=== PATIENT | female | born 1960 | race Caucasian/White ===

== ENCOUNTER → 2017-09-07 | Outpatient (CLI) | payer MEDICARE, OTHER ==
--- NOTE | 2017-09-07 15:26 | RAD ---
DATE: September 07, 2017 EXAM: MAMMO MAYI SCREENING BILATERAL HISTORY: Screening study. COMPARISON: 2014 and 2016 This study was interpreted with the benefit of Computerized Aided Detection (CAD). 2-D digital mammographic views of both breasts were performed in the CC and MLO projections. 3-D digital tomosynthesis of both breasts were performed in the CC and MLO projections and reviewed on a computer workstation. FINDINGS: The breast parenchyma is replaced with adipose tissue. There are no dominant suspicious masses, suspicious microcalcifications or evidence of architectural distortion. IMPRESSION: No mammographic indicators for malignancy. BI-RADS CATEGORY: 1 NEGATIVE RECOMMENDED FOLLOW-UP: 12M 12 MONTH FOLLOW-UP PQRS compliance statement: Patient information was entered into a reminder system with a target due date September 08, 2018 for the next mammogram. Mammography is a sensitive method for finding small breast cancers, but it does not detect them all and is not a substitute for careful clinical examination. A negative mammogram does not negate a clinically suspicious finding and should not result in delay in biopsying a clinically suspicious abnormality. "Our facility is accredited by the [employer] Mammography Program." The patient's breast density may affect the ability of mammography to detect breast cancer. There are 4 categories of breast density, A, B, C and D. Breast density A means that most of the breast tissue is replaced with adipose tissue and therefore is not dense. Breast density B means that the breast tissue is mildly dense and scattered. Breast density C means that the breast tissue is heterogeneously dense. Breast density D means that the breast tissue is very dense. Breast densities especially C and D may decrease the sensitivity of mammography to detect breast cancer. Therefore, the patient may benefit from 3-D breast mammography (3D breast tomography) as a part of their screening mammogram. Insurance may or may not pay for this additional imaging. The patient's breast density based on today's mammogram is category A.
== END | disposition home or self-care (01) ==
LOC: MAMMO 13:42
PROVIDERS: ATTEND Family Medicine
DX: Z12.31 Encounter for screening mammogram for malignant neoplasm of breast (principal)
CPT/HCPCS: 77063; G0202; 77067

== ENCOUNTER → 2017-09-22 | Outpatient (CLI) | payer MEDICARE, OTHER ==
[~2017-09-22] MED LIST: BUPIVACAINE MPF 0.25% 10 ML VIAL. ONE; IOHEXOL 300 MG/ML 50 ML VIAL. ONE; LIDOCAINE 1% PF 30 ML VIAL. ONE; methylPREDNISolone ACETATE 40 MG/ML VIAL. ONE
== END | disposition home or self-care (01) ==
LOC: SURG 13:14
PROVIDERS: ATTEND Anesthesiology
DX: M46.1 Sacroiliitis, not elsewhere classified (principal); I25.10 Atherosclerotic heart disease of native coronary artery without angina pectoris; E07.9 Disorder of thyroid, unspecified; M19.91 Primary osteoarthritis, unspecified site; Z72.0 Tobacco use; Z87.01 Personal history of pneumonia (recurrent)
CPT/HCPCS: G0260; J1030; J2001; J3490; Q9967

== ENCOUNTER → 2017-10-20 | Outpatient (CLI) | payer MEDICARE, OTHER | END | disposition home or self-care (01) | LOC: SURG 13:03 | PROVIDERS: ATTEND Anesthesiology | DX: M46.1 Sacroiliitis, not elsewhere classified (principal); J45.909 Unspecified asthma, uncomplicated; I10 Essential (primary) hypertension; E07.9 Disorder of thyroid, unspecified; Z87.01 Personal history of pneumonia (recurrent); Z72.0 Tobacco use | CPT/HCPCS: G0260; J1030; J2001; J3490; Q9967; 27096 ==

== ENCOUNTER → 2017-12-29 | Outpatient (CLI) | payer MEDICARE, OTHER | END | disposition home or self-care (01) | LOC: SURG 15:08 | PROVIDERS: ATTEND Anesthesiology | DX: M53.3 Sacrococcygeal disorders, not elsewhere classified (principal); M47.817 Spondylosis without myelopathy or radiculopathy, lumbosacral region; M46.1 Sacroiliitis, not elsewhere classified | CPT/HCPCS: 99214 ==

== ENCOUNTER → 2018-01-26 | Outpatient (CLI) | payer MEDICARE, OTHER ==
[~2018-01-26] MED LIST changes: +ALPR2TAB2 PO; +ASPI-630 PO; +BENZ100C PO; +BUPR150T8 PO; +CARB1TAB2 PO; +CARI6CAP PO; +DEXAMETHASONE SOD PHOS 4 MG/ML VIAL ONE; +FLUO40CA9 PO; +FURO-68 PO; +IBUP200T44 PO; -IOHEXOL 300 MG/ML 50 ML VIAL. ONE; +LAMO200T3 PO; +LEVO100T PO; +LIPITOR80 MG PO; +LISI10TA2 PO; +MESA0.372 PO; +MIDAZOLAM HCL PF 2 MG/2 ML VIAL. ONE; +MONT10TA9 PO; +NEBI5TAB2 PO; +PANT40TA3 PO; +PATCH REMOVAL. MC SCH; +POTA10TA10 PO; +PRIM50TA24 PO; +TOPI200T6 PO; +TRAM50TA PO; +TRAZ-90 PO; -methylPREDNISolone ACETATE 40 MG/ML VIAL. ONE
[2018-01-26] MEDS: IV RINGERS SOLUTION,LACTATED 1,000 ML IV SCH (08:29)
[2018-01-26 10:05] VITALS: BP 119/58
[2018-01-26] MEDS: LIDOCAINE (700MG/PATCH) PATCH. TD SCH (10:15)
== END | disposition home or self-care (01) ==
LOC: SURG 07:21
PROVIDERS: ATTEND Anesthesiology
DX: M47.817 Spondylosis without myelopathy or radiculopathy, lumbosacral region (principal); M53.3 Sacrococcygeal disorders, not elsewhere classified; I25.10 Atherosclerotic heart disease of native coronary artery without angina pectoris; I10 Essential (primary) hypertension; E03.9 Hypothyroidism, unspecified; G47.30 Sleep apnea, unspecified; M19.90 Unspecified osteoarthritis, unspecified site; F32.9 Major depressive disorder, single episode, unspecified; F41.9 Anxiety disorder, unspecified
CPT/HCPCS: 64634; 64635; 64636; 64640; 99152; J1100; J2001; J2250; J3010; J3490; J7120

== ENCOUNTER → 2018-04-06 | Outpatient (CLI) | payer MEDICARE, OTHER ==
[2018-01-26 10:05] VITALS: BP 119/58
[~2018-04-06] MED LIST changes: -BUPIVACAINE MPF 0.25% 10 ML VIAL. ONE; -DEXAMETHASONE SOD PHOS 4 MG/ML VIAL ONE; -LIDOCAINE 1% PF 30 ML VIAL. ONE; -MIDAZOLAM HCL PF 2 MG/2 ML VIAL. ONE; -PATCH REMOVAL. MC SCH
== END | disposition home or self-care (01) ==
LOC: LAB 15:58
PROVIDERS: ATTEND Internal Medicine Gastroenterology
DX: K52.9 Noninfective gastroenteritis and colitis, unspecified (principal)
CPT/HCPCS: 36415

== ENCOUNTER → 2018-06-03 | Outpatient (CLI) | payer MEDICARE, OTHER ==
[2018-01-26 10:05] VITALS: BP 119/58
[~2018-06-03] MED LIST changes: +TRAZ-86 PO; -TRAZ-90 PO
--- NOTE | 2018-06-03 09:54 | RAD ---
Examination: CT chest without contrast HISTORY: History of pulmonary infiltrates COMPARISON: None available Technique : Axial CT images of chest were performed without contrast. Coronal and sagittal reformats are performed Exposure: One or more of the following individualized dose reduction techniques were utilized for this examination: 1. Automated exposure control 2. Adjustment of the mA and/or kV according to patient size 3. Use of iterative reconstruction technique FINDINGS: The visualized thyroid gland demonstrates a 1 cm hypodense nodule in the right lobe of the thyroid gland. The central airways are patent. Diffuse coronary artery calcifications identified. The heart size grossly appears unremarkable. The caliber of the aorta grossly appears unremarkable. Small mediastinal lymph nodes identified with the largest measuring 1 cm in the right pretracheal region No evidence of pleural effusion or pneumothorax. There is minimal prominent appearing interstitial lung markings in the peripheral portion of the left upper lobe, right upper lobe and the left lower lobe. Calcified granuloma identified in the right middle lobe of the lung. The visualized noncontrasted liver, spleen, adrenals grossly appears unremarkable. Mild degenerative changes identified in the thoracic spine. IMPRESSION: 1. Minimal prominent appearing interstitial lung markings identified in the left upper lobe, right upper lobe and left lower lobe of the lung could be subtle interstitial infiltrates. 2. Coronary artery calcifications. 3. 1 cm hypodense nodule identified in the right lobe of thyroid gland. Follow-up ultrasound thyroid is recommended. Electronically signed by: Morris Zaman MD (06/03/2018 9:50 AM) [id number]
== END | disposition home or self-care (01) ==
LOC: CT 09:07
PROVIDERS: ATTEND Internal Medicine Pulmonary Disease
DX: I25.10 Atherosclerotic heart disease of native coronary artery without angina pectoris (principal); I10 Essential (primary) hypertension; E78.5 Hyperlipidemia, unspecified; E03.9 Hypothyroidism, unspecified; J45.909 Unspecified asthma, uncomplicated; Z87.01 Personal history of pneumonia (recurrent)
CPT/HCPCS: 71250

== ENCOUNTER → 2018-09-07 | Outpatient (CLI) | payer MEDICARE, OTHER ==
[2018-01-26 10:05] VITALS: BP 119/58
--- NOTE | 2018-09-07 16:38 | RAD ---
CT study of the chest without contrast Clinical indications: History of pulmonary infiltrates. Follow-up study. TECHNIQUE: Noncontrast helical CT scanning of the chest was performed. Without contrast, the sensitivity to detect organ pathology is decreased. PQRS compliance Statement One or more of the following individualized dose reduction techniques were utilized for this study: 1. Automated exposure control 2. Adjustment of the mA and/or kV according to patient size 3. Use of iterative reconstruction technique COMPARISON: June 03, 2018. FINDINGS: Again seen is a hypodense nodule within the right lobe of the thyroid gland which is unchanged. Mediastinal lymphadenopathy is stable. Calcified granulomatous lymph nodes are seen within the right hilum. No focal aneurysmal dilatation of the thoracic aorta is seen. Calcified atheromatous disease of the coronary arteries is seen. Heart size is normal and no pericardial effusion is seen. Bilateral interstitial lung disease is again evident. This has not changed significantly in the left upper lobe. This has increased within the left lower lobe. The right side is less prominent than the left side. There is no change in interstitial lung disease of the right upper lobe or right lower lobe. The right middle lobe is not involved. No new lung consolidation with air bronchograms is seen. There is a calcified granuloma of the right upper lobe. No pleural effusion or pneumothorax is seen. The proximal bronchial tree is patent. No osteolytic process is seen. No adrenal mass is evident. IMPRESSION: Chronic bilateral interstitial lung infiltrates are stable on the right side but have increased within the left lower lobe. Stable hypodense nodule of the right lobe of the thyroid gland. Calcified atheromatous disease of coronary arteries. Electronically signed by: Josh Valle MD (09/07/2018 4:35 PM) [facility] [place]
== END | disposition home or self-care (01) ==
LOC: CT 09:46
PROVIDERS: ATTEND Internal Medicine Pulmonary Disease
DX: I25.10 Atherosclerotic heart disease of native coronary artery without angina pectoris (principal); J84.10 Pulmonary fibrosis, unspecified; J84.89 Other specified interstitial pulmonary diseases; R91.8 Other nonspecific abnormal finding of lung field; Z88.8 Allergy status to other drugs, medicaments and biological substances; Z87.891 Personal history of nicotine dependence
CPT/HCPCS: 71250

== ENCOUNTER → 2018-09-07 | Outpatient (CLI) | payer MEDICARE, OTHER ==
[2018-01-26 10:05] VITALS: BP 119/58
== END | disposition home or self-care (01) ==
LOC: SURG 08:53
PROVIDERS: ATTEND Anesthesiology
DX: M47.817 Spondylosis without myelopathy or radiculopathy, lumbosacral region (principal); M53.3 Sacrococcygeal disorders, not elsewhere classified; M25.562 Pain in left knee
CPT/HCPCS: 99214

== ENCOUNTER → 2018-10-13 | Outpatient (CLI) | payer MEDICARE, OTHER ==
[2018-01-26 10:05] VITALS: BP 119/58
--- NOTE | 2018-10-14 09:56 | RAD ---
Gastric Emptying Study: Clinical History: Nausea, vomiting, no appetite 1.5 mCi of technetium 99m sulfur colloid was administered in an egg meal and spot scanning was performed on a gamma camera for 4 hours for a 4 hour gastric emptying protocol. Activity at 1 hour is 70%, normal is 35 to 91%. Activity at 2 hours is 50%, normal is 2.7% to 60%. Activity at 3 hours is 28%, normal is 0.5% to 28%. At 4 hours activity is 3.6%, normal is 0 to 10%. Impression: Normal gastric emptying. Electronically signed by: Morris Zaman MD (10/14/2018 9:52 AM) [place] [id number]
== END | disposition home or self-care (01) ==
LOC: NM 08:06
PROVIDERS: ATTEND Internal Medicine Gastroenterology
DX: R11.2 Nausea with vomiting, unspecified (principal)
CPT/HCPCS: 78264; A9541

== ENCOUNTER → 2018-11-29 | Outpatient (CLI) | payer MEDICARE, OTHER ==
[2018-01-26 10:05] VITALS: BP 119/58
--- NOTE | 2018-11-30 07:11 | RAD ---
DATE: 11/29/2018 EXAM: MAMMO MAYI SCREENING BILATERAL HISTORY: Screening Mammogram COMPARISON: Mammogram 09/07/2017, 09/01/2016 This study was interpreted with the benefit of Computerized Aided Detection (CAD). The breast parenchyma is primarily fatty replaced. Breast parenchyma level density A. FINDINGS: Bilateral digital 2-D and 3-D tomosynthesis CC and MLO views. There are benign scattered calcifications throughout both breasts. No suspicious mass, calcification or architectural distortion. No significant change from prior examination. IMPRESSION: No mammographic evidence of malignancy. Recommend routine screening mammogram in 12 months. BI-RADS CATEGORY: 1 NEGATIVE RECOMMENDED FOLLOW-UP: 12M 12 MONTH FOLLOW-UP PQRS compliance statement: Patient information was entered into a reminder system with a target due date for the next mammogram. Mammography is a sensitive method for finding small breast cancers, but it does not detect them all and is not a substitute for careful clinical examination. A negative mammogram does not negate a clinically suspicious finding and should not result in delay in biopsying a clinically suspicious abnormality. "Our facility is accredited by the [employer] Mammography [employer]."
== END | disposition home or self-care (01) ==
LOC: MAMMO 09:22
PROVIDERS: ATTEND Family Medicine
DX: Z12.31 Encounter for screening mammogram for malignant neoplasm of breast (principal)
CPT/HCPCS: 77063; 77067

== ENCOUNTER → 2019-01-14 | Outpatient (CLI) | payer MEDICARE, OTHER ==
[2018-01-26 10:05] VITALS: BP 119/58
[2019-01-14 10:39] LABS: CALCIUM 9.2 mg/dL (8.5-10.1); GFR 57.4; POTASSIUM 3.7 mmol/L (3.5-5.1)
[2019-01-14 12:38] LABS: BASO # 0.1 x10^3/uL (0.0-0.2); BASO % 1 % (0-3); EOS # 0.3 x10^3/uL (0.0-0.7); EOS % 3 % (0-3); HEMATOCRIT 38.6 % (36.0-47.0); HEMOGLOBIN 12.7 g/dL (12.0-15.5); LYMPH # 1.9 x10^3/uL (1.0-4.8); LYMPH % 22 % (24-48); MEAN CORPUSCULAR HEMOGLOBIN 30 pg (25-35); MEAN CORPUSCULAR HGB CONC 33 g/dL (31-37); MEAN CORPUSCULAR VOLUME 91 fL (79-100); MONO # 0.7 x10^3/uL (0.0-1.1); MONO % 9 % (0-9); NEUT # 5.4 x10^3uL (1.8-7.7); NEUT % 65 % (31-73); PLATELET COUNT 185 x10^3/uL (140-400); RED BLOOD COUNT 4.25 x10^6/uL (3.50-5.40); RED CELL DISTRIBUTION WIDTH 13.4 % (11.5-14.5); WHITE BLOOD COUNT 8.3 x10^3/uL (4.0-11.0)
[2019-01-14 12:46] LABS: BACTERIA,URINE 0 /HPF (0-FEW); BILIRUBIN,URINE NEG (NEG); CLARITY,URINE CLEAR; COLOR,URINE YELLOW; GLUCOSE,URINE NEG (NEG); NITRITE,URINE NEG (NEG); RBC,URINE 0 /HPF (0-2); SQUAMOUS EPITHELIAL CELL,UR OCC /LPF; UROBILINOGEN,URINE 0.2 mg/dL (0.2 mg/dL); WBC,URINE 0 /HPF (0-4); YEAST,URINE PRESENT /HPF
== END | disposition home or self-care (01) ==
LOC: LAB 09:24
PROVIDERS: ATTEND Internal Medicine Cardiovascular Disease
DX: I49.5 Sick sinus syndrome (principal); I10 Essential (primary) hypertension; E78.5 Hyperlipidemia, unspecified; E03.9 Hypothyroidism, unspecified; J45.909 Unspecified asthma, uncomplicated; Z87.891 Personal history of nicotine dependence; Z79.899 Other long term (current) drug therapy; R79.1 Abnormal coagulation profile
CPT/HCPCS: 36415; 80048; 81001; 85025; 85610; 85730

== ENCOUNTER → 2019-04-08 | Outpatient (CLI) | payer MEDICARE, OTHER ==
[2018-01-26 10:05] VITALS: BP 119/58
[2019-04-11 15:06] LABS: C ANCA <1:20 titer (Neg:<1:20); P ANCA <1:20 titer (Neg:<1:20)
[2019-04-13 09:07] LABS: SCL 70 ANTIBODY <0.2 AI (0.0-0.9)
== END | disposition home or self-care (01) ==
LOC: LAB 07:04
PROVIDERS: ATTEND Internal Medicine Pulmonary Disease
DX: J84.9 Interstitial pulmonary disease, unspecified (principal); J45.909 Unspecified asthma, uncomplicated
CPT/HCPCS: 36415; 82784; 86021; 86235

== ENCOUNTER → 2019-04-08 | Outpatient (CLI) | payer MEDICARE, OTHER ==
[2018-01-26 10:05] VITALS: BP 119/58
[2019-04-08 08:12] LABS: BASO # 0.1 x10^3/uL (0.0-0.2); BASO % 1 % (0-3); EOS # 0.1 x10^3/uL (0.0-0.7); EOS % 2 % (0-3); HEMATOCRIT 36.6 % (36.0-47.0); HEMOGLOBIN 12.3 g/dL (12.0-15.5); LYMPH % 33 % (24-48); MEAN CORPUSCULAR HEMOGLOBIN 30 pg (25-35); MEAN CORPUSCULAR HGB CONC 34 g/dL (31-37); MEAN CORPUSCULAR VOLUME 90 fL (79-100); MONO # 0.5 x10^3/uL (0.0-1.1); MONO % 8 % (0-9); NEUT # 3.4 x10^3uL (1.8-7.7); NEUT % 56 % (31-73); PLATELET COUNT 198 x10^3/uL (140-400); RED BLOOD COUNT 4.07 x10^6/uL (3.50-5.40); RED CELL DISTRIBUTION WIDTH 14.1 % (11.5-14.5); WHITE BLOOD COUNT 6.1 x10^3/uL (4.0-11.0)
[2019-04-08 08:36] LABS: ALBUMIN 3.3 g/dL (3.4-5.0); ALBUMIN/GLOBULIN RATIO 0.9 (1.0-1.7); CALCIUM 9.4 mg/dL (8.5-10.1); CREATININE 1.1 mg/dL (0.6-1.0); GFR 51.4; POTASSIUM 3.8 mmol/L (3.5-5.1); TOTAL BILIRUBIN 0.3 mg/dL (0.2-1.0); TOTAL PROTEIN 7.1 g/dL (6.4-8.2)
[2019-04-08 14:05] LABS: FREE T4 0.89 ng/dL (0.76-1.46); THYROID STIM HORMONE (TSH) 2.435 uIU/mL (0.358-3.740)
[2019-04-08 21:11] LABS: PROLACTIN 18.1 ng/mL (4.8-23.3)
== END | disposition home or self-care (01) ==
LOC: LAB 07:04
PROVIDERS: ATTEND Clinical Nurse Specialist Psychiatric/Mental Health, Adult
DX: Z79.899 Other long term (current) drug therapy (principal)
CPT/HCPCS: 36415; 80053; 80061; 84146; 84439; 84443; 84480; 85025

== ENCOUNTER → 2019-06-09 | Outpatient (CLI) | payer MEDICARE, OTHER ==
[2018-01-26 10:05] VITALS: BP 119/58
[~2019-06-09] MED LIST changes: +MONT10TA80 PO; -MONT10TA9 PO
--- NOTE | 2019-06-09 16:16 | RAD ---
EXAM: US right axilla DATE: 06/09/2019 3:00 PM COMPARISON: CT chest 09/07/2018 INDICATION: Mass lesion, characterize and localize TECHNIQUE: Longitudinal and transverse imaging with intermittent Doppler sampling completed with attention to the right axilla FINDINGS/ IMPRESSION: Normal sonographic evaluation of the right axilla without obvious mass lesion. No abnormal lymph nodes are identified. Electronically signed by: Rudy Silva MD (06/09/2019 4:13 PM) [id number]
== END | disposition home or self-care (01) ==
LOC: US 14:32
PROVIDERS: ATTEND Physician Assistant Medical
DX: R22.31 Localized swelling, mass and lump, right upper limb (principal)
CPT/HCPCS: 76881

== ENCOUNTER → 2019-12-22 | Outpatient (CLI) | payer MEDICARE, OTHER ==
[2018-01-26 10:05] VITALS: BP 119/58
[~2019-12-22] MED LIST changes: +TRAZ-125 PO; -TRAZ-86 PO
--- NOTE | 2019-12-22 17:56 | RAD ---
BILATERAL SCREENING MAMMOGRAM, 3-D History: Routine screening. Comparison: 12/31/2012, 03/12/2015, 09/01/2016, 09/07/2017, 11/21/2018. Technique: MLO and CC digital tomosynthesis (3D) images obtained. Radiologist reviewed these images on dedicated workstation. Findings: Breast Tissue Density B : There are scattered areas of fibroglandular density. There are no dominant masses, suspicious microcalcifications, or architectural distortion. IMPRESSION: No mammographic evidence of malignancy. Recommend routine screening. BI-RADS category 1: Negative. The images were reviewed with computer-aided detection. Patient information is entered into reminder system with a target due date for the next screening mammogram. Mammography is the most sensitive method for finding small breast cancers, but it does not detect them all and is not a substitute for careful clinical examination. A negative mammogram does not negate a clinically suspicious finding and should not result in delay in biopsying a clinically suspicious abnormality. "Our facility is accredited by the [employer] Mammography Program." Electronically signed by: Nasir Salinas MD (12/22/2019 5:53 PM) [facility]
== END | disposition home or self-care (01) ==
LOC: MAMMO 09:18
PROVIDERS: ATTEND Family Medicine
DX: Z12.31 Encounter for screening mammogram for malignant neoplasm of breast (principal)
CPT/HCPCS: 77063; 77067

== ENCOUNTER 2021-03-06 12:25 | Emergency (ER) | payer MEDICARE, OTHER ==
[~2021-03-06] VITALS: Ht 154.9 cm; Wt 87.0 kg
[~2021-03-06 12:25] MED LIST changes: +CARB-186 PO; -CARB1TAB2 PO; +LISI10TA16 PO; -LISI10TA2 PO
--- NOTE | 2021-03-06 12:44 | EKG ---
[address] [address] Test Date: 2021-03-06 Test Time: 12:30:29 Pat Name: SHANI FISHER Department: Room: Gender: F [employer]: MEGAN : 1960 Requested By: ZANE NOLASCO Order Number: [id number] Reading MD: Measurements Intervals [place] Rate: 77 P: 6 CO: 168 QRS: -10 QRSD: 84 T: 11 QT: 400 QTc: 455 Interpretive Statements SINUS RHYTHM LEFTWARD AXIS QRS(T) CONTOUR ABNORMALITY CONSIDER INFERIOR INFARCT POSSIBLY ABNORMAL ECG RI6.02 No previous ECG available for comparison
[2021-03-06] MEDS ORDERED: DEXAMETHASONE SOD PHOS 10 MG/ML VIAL. IVP ONE (12:45)
[2021-03-06] MEDS ORDERED: IV NORMAL SALINE 1,000ML 1,000 ML IV ONE (12:45)
[2021-03-06] MEDS ORDERED: MECLIZINE 12.5 MG TABLET. PO ONE (12:45)
--- NOTE | 2021-03-06 12:55 | PHYS DOC ---
Past History Past Medical History: Depression, Hypertension, Hyperthyroid, Other Additional Past Medical Histor: Bradycardia, Parkinson's Past Surgical History: Cholecystectomy, Pacemaker Alcohol Use: None General Adult EDM: Chief Complaint: NEAR SYCOPE HPI: HPI: Patient is a [age] year old [sex] who presents with [] Review of Systems: Review of Systems: Constitutional: Denies fever or chills Eyes: Denies change in visual acuity HENT: Denies nasal congestion or sore throat Respiratory: Denies cough or shortness of breath Cardiovascular: Denies chest pain or edema GI: Denies abdominal pain, nausea, vomiting, bloody stools or diarrhea : Denies dysuria Musculoskeletal: Denies back pain or joint pain Integument: Denies rash Neurologic: Denies headache, focal weakness or sensory changes Endocrine: Denies polyuria or polydipsia Lymphatic: Denies swollen glands Psychiatric: Denies depression or anxiety Current Medications: Current Meds: Current Medications Medications (Trade) Dose Ordered Sig/Leah Start Time Stop Time Status Last Admin Dose Admin Dexamethasone Sodium Phosphate (Decadron) 10 mg 1X ONCE 03/06/21 12:45 03/06/21 12:46 DC Meclizine HCl (Antivert) 25 mg 1X ONCE 03/06/21 12:45 03/06/21 12:46 DC Sodium Chloride 1,000 ml @ 1,000 mls/hr 1X ONCE 03/06/21 12:45 03/06/21 13:44 Allergies: Allergies: Allergies Coded Allergies Type Severity Reaction Last Updated Verified Sulfa (Sulfonamide Antibiotics) Allergy Unknown 01/26/18 Yes azithromycin Allergy Unknown 01/26/18 Yes gabapentin Allergy Unknown 01/26/18 Yes hydroxychloroquine Allergy Unknown 01/26/18 Yes pilocarpine Allergy Unknown 01/26/18 Yes pregabalin Allergy Unknown 01/26/18 Yes Physical Exam: PE: Constitutional: Well developed, well nourished, no acute distress, non-toxic appearance. [] HENT: Normocephalic, atraumatic, bilateral external ears normal, oropharynx moist, no oral exudates, nose normal. [] Eyes: PERRLA, EOMI, conjunctiva normal, no discharge. [] Neck: Normal range of motion, no tenderness, supple, no stridor. [] Cardiovascular:Heart rate regular rhythm, no murmur [] Lungs & Thorax: Bilateral breath sounds clear to auscultation [] Abdomen: Bowel sounds normal, soft, no tenderness, no masses, no pulsatile masses. [] Skin: Warm, dry, no erythema, no rash. [] Back: No tenderness, no CVA tenderness. [] Extremities: No tenderness, no cyanosis, no clubbing, ROM intact, no edema. [] Neurologic: Alert and oriented X 3, normal motor function, normal sensory function, no focal deficits noted. [] Psychologic: Affect normal, judgement normal, mood normal. [] Current Patient Data: Vital Signs: Vital Signs Date Time Temp Pulse Resp B/P (MAP) Pulse Ox O2 Delivery O2 Flow Rate FiO2 03/06/21 12:36 98.3 73 16 128/64 (85) Room Air EKG: EKG: @1230 NSR at 77bpm, NO ST elevate, QRS 84ms, QT/QTc 400/455ms Radiology/Procedures: Radiology/Procedures: PROCEDURE: CT HEAD WO CONTRAST CT HEAD INDICATION: Dizziness COMPARISON: None Available. Exposure: One or more of the following individualized dose reduction techniques were utilized for this examination: 1. Automated exposure control 2. Adjustment of the mA and/or kV according to patient size 3. Use of iterative reconstruction technique TECHNIQUE: 5 mm contiguous axial images were obtained from the skull base to the vertex in both bone and soft tissue algorithm. FINDINGS: No abnormal attenuation within the brain parenchyma. No evidence of acute intracranial hemorrhage. No extra-axial fluid collections. No mass effect or midline shift. Ventricular size is appropriate. Basal cisterns are patent. No fractures identified.Longoria-white differentiation is preserved.Globes and orbits are within normal limits. Paranasal sinuses and mastoid air cells are clear. IMPRESSION: No acute intracranial findings. Electronically signed by: Morris Zaman MD (03/06/2021 1:05 PM) [id number] Heart Score: Risk Factors: Risk Factors: DM, Current or recent (<one month) smoker, HTN, HLP, family history of CAD, obesity. Risk Scores: Score 0 - 3: 2.5% MACE over next 6 weeks - Discharge Home Score 4 - 6: 20.3% MACE over next 6 weeks - Admit for Clinical Observation Score 7 - 10: 72.7% MACE over next 6 weeks - Early Invasive Strategies Course & Med Decision Making: Course & Med Decision Making Pertinent Labs and Imaging studies reviewed. (See chart for details) [] Dragon Disclaimer: Dragon Disclaimer: This electronic medical record was generated, in whole or in part, using a voice recognition dictation system. Departure Departure: Impression: Primary Impression: Dizziness Disposition: 01 HOME / SELF CARE / HOMELESS Condition: STABLE Referrals: BONG BROWN (PCP) Patient Instructions: Dehydration, Adult, [id number], Dizziness, [id number], Vertigo, Zfes-vb-Spot Additional Instructions: Please call and make appointment to see Dr. Selma Smith (ENT). Address: [address] [place] [address] Increase fluid hydration. Scripts Meclizine Hcl (MECLIZINE HCL) 25 Mg Tablet 1 TAB PO PRN TID PRN for DIZZINESS, #30 TAB Prov: ZANE NOLASCO DO 03/06/21 ZANE NOLASCO DO March 06, 2021 12:55
[2021-03-06 13:01] LABS: BASO # 0.1 x10^3/uL (0.0-0.2); BASO % 1 % (0-3); EOS # 0.1 x10^3/uL (0.0-0.7); EOS % 2 % (0-3); HEMATOCRIT 35.7 % (36.0-47.0); HEMOGLOBIN 11.7 g/dL (12.0-15.5); LYMPH # 1.2 x10^3/uL (1.0-4.8); LYMPH % 17 % (24-48); MEAN CORPUSCULAR HEMOGLOBIN 28 pg (25-35); MEAN CORPUSCULAR HGB CONC 33 g/dL (31-37); MEAN CORPUSCULAR VOLUME 87 fL (79-100); MONO # 0.6 x10^3/uL (0.0-1.1); MONO % 9 % (0-9); NEUT # 5.3 x10^3uL (1.8-7.7); NEUT % 72 % (31-73); PLATELET COUNT 156 x10^3/uL (140-400); RED BLOOD COUNT 4.11 x10^6/uL (3.50-5.40); RED CELL DISTRIBUTION WIDTH 15.8 % (11.5-14.5); WHITE BLOOD COUNT 7.3 x10^3/uL (4.0-11.0)
--- NOTE | 2021-03-06 13:08 | RAD ---
CT HEAD INDICATION: Dizziness COMPARISON: None Available. Exposure: One or more of the following individualized dose reduction techniques were utilized for thi s examination: 1. Automated exposure control 2. Adjustment of the mA and/or kV according to patient size 3. Use of iterative reconstruction technique TECHNIQUE: 5 mm contiguous axial images were obtained from the skull base to the vertex in both bone and soft tissue algorithm. FINDINGS: No abnormal attenuation within the brain parenchyma. No evidence of acute intracranial hemorrhage. No extra-axial fluid collections. No mass effect or midline shift. Ventricular size is appropriate. Basal cisterns are patent. No fractures identified.Longoria-white differentiation is preserved.Globes and orbits are within normal l imits. Paranasal sinuses and mastoid air cells are clear. IMPRESSION: No acute intracranial findings. Electronically signed by: Morris Zaman MD (03/06/2021 1:05 PM) [id number]
[2021-03-06 13:09] LABS: ANION GAP 13 (6-14); BLOOD UREA NITROGEN 16 mg/dL (7-20); BUN/CREATININE RATIO 13 (6-20); CALCIUM 8.5 mg/dL (8.5-10.1); CARBON DIOXIDE 22 mmol/L (21-32); CHLORIDE 105 mmol/L (98-107); CREATININE 1.2 mg/dL (0.6-1.0); GFR 46.1; GLUCOSE 103 mg/dL (70-99); POTASSIUM 4.1 mmol/L (3.5-5.1); SODIUM 140 mmol/L (136-145)
[2021-03-06 13:24] LABS: ALBUMIN 3.3 g/dL (3.4-5.0); ALK PHOS 79 U/L (46-116); ALT (SGPT) 10 U/L (14-59); AST (SGOT) 17 U/L (15-37); TOTAL BILIRUBIN 0.3 mg/dL (0.2-1.0); TOTAL PROTEIN 6.6 g/dL (6.4-8.2)
[2021-03-06 16:41] LABS: BACTERIA,URINE FEW /HPF (0-FEW); BILIRUBIN,URINE NEG (NEG); CLARITY,URINE CLEAR; COLOR,URINE YELLOW; GLUCOSE,URINE NEG (NEG); NITRITE,URINE NEG (NEG); UROBILINOGEN,URINE 0.2 mg/dL (0.2 mg/dL); WBC,URINE RARE /HPF (0-4)
[2021-03-06 16:53] LABS: PLT ESTIMATE ADEQUATE (ADEQUATE)
[2021-03-06] MEDS ORDERED: MECL-75 PO (17:07)
[2021-03-06 17:14] VITALS: BP 123/77
== END 2021-03-06 17:16 | disposition home or self-care (01) ==
LOC: ER 12:25
DX: R42 Dizziness and giddiness (principal); F32.9 Major depressive disorder, single episode, unspecified; I10 Essential (primary) hypertension; E05.90 Thyrotoxicosis, unspecified without thyrotoxic crisis or storm; Z95.0 Presence of cardiac pacemaker; Z88.2 Allergy status to sulfonamides; Z88.1 Allergy status to other antibiotic agents; Z88.8 Allergy status to other drugs, medicaments and biological substances
CPT/HCPCS: 36415; 70450; 80053; 81001; 82553; 84484; 85025; 93005; 96361; 96374; 99285; J1100; J7030; P9612

== ENCOUNTER → 2021-06-27 | Outpatient (CLI) | payer MEDICARE, OTHER ==
[2018-01-26 10:05] VITALS: BP 119/58
[~2021-06-27] MED LIST changes: +IOHEXOL 300 MG/ML 75 ML VIAL. IV ONE; +MECL-75 PO
--- NOTE | 2021-06-27 13:24 | RAD ---
EXAM: Chest CT without intravenous contrast. HISTORY: Infiltrate. TECHNIQUE: Computed tomographic images of the chest were obtained without contrast. Multiplanar refor matting was performed. *One or more of the following individualized dose reduction techniques were utilized for this examina tion: 1. Automated exposure control. 2. Adjustment of the mA and/or kV according to patient size. 3. Use of iterative reconstruction technique. COMPARISON: 09/07/2018. FINDINGS: The heart is normal in size. There is a cardiac pacemaker. The aorta is normal in caliber. There are calcified right hilar and right lung granulomas. There is no lymphadenopathy. There is calc ified atherosclerotic plaque involving the coronary arteries. There is no pneumothorax or pleural eff usion. There is pulmonary emphysema. There is multifocal peripheral and lower lobe predominant groundglass o pacity with septal line thickening. There is no consolidation. There is no suspicious noncalcified pu lmonary nodule. There is no acute finding involving the upper abdomen. There are right renal cysts, partially include d on the [id number]. Follow-up is not routinely performed for simple cysts. The gallbladder is jessica gically absent. There is no acute or suspicious osseous finding. IMPRESSION: Bilateral peripheral and lower lobe predominant groundglass opacities and areas of septal line thickening, increased compared to the prior exam. The imaging appearance favors chronic interst itial changes with superimposed lower lobe predominant interstitial infiltrate. There is no consolida tion or suspicious pulmonary nodule. Electronically signed by: Sofia Fields MD (06/27/2021 1:21 PM) [id number]
== END ==
LOC: CT 11:10
PROVIDERS: ATTEND Family Medicine
DX: R91.8 Other nonspecific abnormal finding of lung field (principal); N28.1 Cyst of kidney, acquired; J43.9 Emphysema, unspecified; I25.10 Atherosclerotic heart disease of native coronary artery without angina pectoris
CPT/HCPCS: 71250

== ENCOUNTER → 2022-01-23 | Outpatient (CLI) | payer MEDICARE, OTHER ==
[2018-01-26 10:05] VITALS: BP 119/58
[~2022-01-23] MED LIST changes: -IOHEXOL 300 MG/ML 75 ML VIAL. IV ONE
--- NOTE | 2022-01-23 12:07 | RAD ---
BILATERAL DIGITAL SCREENING 2-D AND 3-D MAMMOGRAM INDICATION: Routine screening. COMPARISON: Previous mammograms dating back to March 12, 2015 Interpretation was made using CAD. FINDINGS: Breast Density: The breasts are almost entirely fatty. RIGHT BREAST: No suspicious masses, calcifications or areas of architectural distortion are seen. LEFT BREAST: There are unchanged benign-appearing calcifications in the outer breast. No suspicious m asses, calcifications or areas of architectural distortion are seen. IMPRESSION: 1. No imaging evidence of malignancy. ASSESSMENT: BI-RADS 2. Benign findings. RECOMMENDATION: Routine annual screening mammogram. The facility will notify the patient of the results via mail. Patient information will be entered int o the mammography reminder system with a target recall date for the next mammogram. A reminder letter will be generated by the facility. Electronically signed by: Rachell Jon MD (01/23/2022 12:04 PM) [id number]
== END ==
LOC: MAMMO 10:30
PROVIDERS: ATTEND Family Medicine
DX: Z12.31 Encounter for screening mammogram for malignant neoplasm of breast (principal)
CPT/HCPCS: 77063; 77067